=== PATIENT | male | born 1990 | race Caucasian/White ===

== ENCOUNTER 2023-02-08 11:34 | Emergency (ER) | payer OTHER ==
[2023-02-08 11:53] VITALS: BP 136/79; PULSE 71; RESP 18; TEMP 97.6; BMI 25.7
[2023-02-08] MEDS ORDERED: KETOROLAC TROMETHAMINE 30 MG/1 ML VIAL IM ONE (12:18)
[2023-02-08] MEDS ORDERED: KETOROLAC TROMETHAMINE 30 MG/1 ML VIAL ONE (12:27)
== END 2023-02-08 14:39 | disposition home or self-care (01) ==
LOC: JERFT 11:34 → JER 11:34 → JERFT 14:39
PROC: 3E0233Z Introduction of Anti-inflammatory into Muscle, Percutaneous Approach (ICD-10-PCS; principal; 2023-02-08)
DX: S86.911A Strain of unspecified muscle(s) and tendon(s) at lower leg level, right leg, initial encounter (principal); M79.661 Pain in right lower leg; X50.9XXA Other and unspecified overexertion or strenuous movements or postures, initial encounter; Y93.67 Activity, basketball
CPT/HCPCS: 73590-TC-RT-FY; 76882-TC-RT-FY; 99284-25